=== PATIENT | male | born 1980 | race Caucasian/White ===

== ENCOUNTER 2020-03-25 16:38 | Emergency (ER) | payer OTHER ==
[2020-03-25] MEDS ORDERED: KETOROLAC 15 MG/ML 1 ML VIAL IVP STA (17:59)
[2020-03-25] MEDS ORDERED: SODIUM CHLORIDE 0.9% 1,000 ML IV STA (17:59)
[2020-03-25] MEDS ORDERED: ONDANSETRON 4 MG/2 ML VIAL IVP STA (17:59)
--- NOTE | 2020-03-25 18:01 | ED ---
General Adult HPI - General Chief complaint: Abdominal Pain Stated complaint: Sent by PCP Liver issues Time Seen by Provider: 03/25/20 17:38 Source: patient, RN notes reviewed Mode of arrival: ambulatory Limitations: no limitations - History of Present Illness Initial comments: Patient is a 40-year-old male presenting to the emergency department for right upper quadrant pain. Patient has a history of cirrhosis from a medication and also has a history of chronic alcoholism. Patient is currently an inmate in the half-way and is brought by police department. RN at the half-way thought patient could be in liver failure. No history of jaundice or scleral icterus. Patient does have a history of liver failure in 2013. He denies nausea vomiting diarrhea. Denies fevers or chills. Patient has no other complaints at this time including shortness of breath, chest pain, nausea or vomiting, headache, or visual changes. - Related Data Home Medications Medication Instructions Recorded Confirmed No Known Home Medications 03/25/20 03/25/20 Allergies Allergy/AdvReac Type Severity Reaction Status Date / Time No Known Allergies Allergy Verified 03/25/20 18:41 Review of Systems ROS Statement: Those systems with pertinent positive or pertinent negative responses have been documented in the HPI. ROS Other: All systems not noted in ROS Statement are negative. Past Medical History Additional Past Medical History / Comment(s): cirrhosis History of Any Multi-Drug Resistant Organisms: MRSA Past Surgical History: Hernia Repair Past Psychological History: Anxiety, Bipolar, PTSD Smoking Status: Current every day smoker Past Alcohol Use History: Abuse, Daily Past Drug Use History: Marijuana General Exam Limitations: no limitations General appearance: alert, in no apparent distress Head exam: Present: atraumatic, normocephalic, normal inspection Eye exam: Present: normal appearance, PERRL, EOMI. Absent: scleral icterus, conjunctival injection, periorbital swelling ENT exam: Present: normal exam, mucous membranes moist Neck exam: Present: normal inspection. Absent: tenderness, meningismus, lymphadenopathy Respiratory exam: Present: normal lung sounds bilaterally. Absent: respiratory distress, wheezes, rales, rhonchi, stridor Cardiovascular Exam: Present: regular rate, normal rhythm, normal heart sounds. Absent: systolic murmur, diastolic murmur, rubs, gallop, clicks GI/Abdominal exam: Present: soft, tenderness (mild Tenderness right upper quadrant without guarding or rebound, no left or lower abdominal tenderness), normal bowel sounds. Absent: distended, guarding, rebound, rigid Course Vital Signs 03/25/20 03/25/20 16:47 18:58 Temperature 97.9 F 97.6 F Pulse Rate 62 62 Respiratory 18 16 Rate Blood Pressure 134/90 122/88 O2 Sat by Pulse 100 98 Oximetry Medical Decision Making - Medical Decision Making Vital are stable. Patient is well-appearing. Mild right upper quadrant tenderness however no guarding or rebound. No lower abdominal tenderness. CBC is unremarkable. He does have Darvocet opinion of 54. Patient states he has been told this in the past and does have a history of alcoholism. CMP is unremarkable. Slight transaminitis. Slightly elevated lipase 322. Ultrasound does show evidence of cholelithiasis. There are hyperechoic areas with posterior shadowing likely cholelithiasis. US is limited. XR does show radiographic evidence of splenomegaly without other acute findings. Patient re- evaluated. His pain is significantly improved. Repeat abdominal exam reveals a nontender abdomen. At this time patient was educated on cholelithiasis and a low-fat diet. It was recommended he follow up with general surgery. He will return to the emergency room for any worsening symptoms. I discussed this case with attending Dr. Valdes who agrees with this assessment and treatment plan. - Lab Data Result diagrams: 03/25/20 18:21 03/25/20 18:21 Lab Results 03/25/20 03/25/20 03/25/20 Range/Units 18:21 18:21 18:38 WBC 4.5 (3.8-10.6) k/uL RBC 5.14 (4.30-5.90) m/uL Hgb 16.5 (13.0-17.5) gm/dL Hct 49.9 (39.0-53.0) % MCV 97.0 (80.0-100.0) fL MCH 32.1 (25.0-35.0) pg MCHC 33.0 (31.0-37.0) g/dL RDW 13.4 (11.5-15.5) % Plt Count 54 L (150-450) k/uL MPV 8.9 Neutrophils % 69 % Lymphocytes % 18 % Monocytes % 7 % Eosinophils % 3 % Basophils % 1 % Neutrophils # 3.1 (1.3-7.7) k/uL Lymphocytes # 0.8 L (1.0-4.8) k/uL Monocytes # 0.3 (0-1.0) k/uL Eosinophils # 0.1 (0-0.7) k/uL Basophils # 0.0 (0-0.2) k/uL Sodium 138 (137-145) mmol/L Potassium 4.7 (3.5-5.1) mmol/L Chloride 102 (98-107) mmol/L Carbon Dioxide 29 (22-30) mmol/L Anion Gap 7 mmol/L BUN 12 (9-20) mg/dL Creatinine 0.72 (0.66-1.25) mg/dL Est GFR (CKD-EPI)AfAm >90 (>60 ml/min/1.73 sqM) Est GFR (CKD-EPI)NonAf >90 (>60 ml/min/1.73 sqM) Glucose 99 (74-99) mg/dL Calcium 9.2 (8.4-10.2) mg/dL Total Bilirubin 1.1 (0.2-1.3) mg/dL AST 80 H (17-59) U/L ALT 83 H (4-49) U/L Alkaline Phosphatase 96 (38-126) U/L Total Protein 8.5 H (6.3-8.2) g/dL Albumin 4.7 (3.5-5.0) g/dL Amylase 120 H (30-110) U/L Lipase 322 H (23-300) U/L Urine Color Light Yellow Urine Appearance Clear (Clear) Urine pH 7.5 (5.0-8.0) Ur Specific [place] 1.008 (1.001-1.035) Urine Protein Negative (Negative) Urine Glucose (UA) Negative (Negative) Urine Ketones Negative (Negative) Urine Blood Negative (Negative) Urine Nitrite Negative (Negative) Urine Bilirubin Negative (Negative) Urine Urobilinogen 2.0 (<2.0) mg/dL Ur Leukocyte Esterase Negative (Negative) Disposition Clinical Impression: Abdominal pain, Cholelithiasis Disposition: HOME SELF-CARE Condition: Poor Instructions (If sedation given, give patient instructions): Abdominal Pain ( ED) Additional Instructions: Please follow up with general surgery. Stick to a low-fat diet as this should help with your pain. Please return to the emergency room for any worsening symptoms such as worsening abdominal pain. Is patient prescribed a controlled substance at d/c from ED?: No Referrals: Nonstaff,Physician [Primary Care Provider] - 1-2 days Uziel Ann MD [STAFF PHYSICIAN] - 1-2 days Time of Disposition: 21:10
[2020-03-25 18:43] LABS: Appearance,Urine Clear (Clear); Bilirubin,Urine Negative (Negative); Blood,Urine Negative (Negative); Color,Urine Light Yellow; Glucose,Urine (UA) Negative (Negative); Ketones,Urine Negative (Negative); Leukocyte Esterase,Urine Negative (Negative); Nitrite,Urine Negative (Negative); PH, Urine 7.5 (5.0-8.0); Protein,Urine Negative (Negative); Specific Gravity,Urine 1.008 (1.001-1.035)
[2020-03-25 18:43] LABS: Basophils % (A) 1 %; Eosinophils # (A) 0.1 k/uL (0-0.7); Eosinophils % (A) 3 %; HCT 49.9 % (39.0-53.0); HGB 16.5 gm/dL (13.0-17.5); Lymphocytes # (A) 0.8 k/uL (1.0-4.8); Lymphocytes % (A) 18 %; MCH 32.1 pg (25.0-35.0); Mean Platelet Volume 8.9; Monocytes # (A) 0.3 k/uL (0-1.0); Monocytes % (A) 7 %; Neutrophils # (A) 3.1 k/uL (1.3-7.7); Neutrophils % (A) 69 %; RBC 5.14 m/uL (4.30-5.90); RDW 13.4 % (11.5-15.5); WBC 4.5 k/uL (3.8-10.6)
[2020-03-25 18:59] VITALS: TEMP 97.6
[2020-03-25 19:24] LABS: ALT 83 U/L (4-49); AST 80 U/L (17-59); African American GFR (CKD) >90 (>60 ml/min/1.73 sqM); Albumin 4.7 g/dL (3.5-5.0); Alkaline Phosphatase 96 U/L (38-126); Amylase 120 U/L (30-110); Anion Gap 7 mmol/L; Blood Urea Nitrogen 12 mg/dL (9-20); Calcium 9.2 mg/dL (8.4-10.2); Carbon Dioxide 29 mmol/L (22-30); Chloride 102 mmol/L (98-107); Glucose 99 mg/dL (74-99); Lipase 322 U/L (23-300); Non-African American GFR(CKD) >90 (>60 ml/min/1.73 sqM); Potassium 4.7 mmol/L (3.5-5.1); Sodium 138 mmol/L (137-145); Total Bilirubin 1.1 mg/dL (0.2-1.3); Total Protein 8.5 g/dL (6.3-8.2)
[2020-03-25 19:44] LABS: Platelet Count 54 k/uL (150-450)
--- NOTE | 2020-03-25 20:05 | XR ---
EXAMINATION TYPE: XR KUB - 2 views DATE OF EXAM: 03/25/2020 6:49 PM CLINICAL HISTORY: Abdominal pain and nausea TECHNIQUE: 2 upright views COMPARISON: None. FINDINGS: There is evidence of splenomegaly, with the spleen extending from the diaphragms down to th e superior iliac crest, approximately 20 cm in this dimension. The interface of the spleen with the g astric fundus can be readily visualized, but the bilateral renal margins are difficult to see due to overlying bowel gas. Scattered gas is seen in non-distended small bowel loops. Gas and fecal material is seen in non-diste nded colon. There is no pneumoperitoneum, or abnormal calcification appreciated. The lung bases are c lear and the osseous structures are intact. IMPRESSION: 1. Radiographic evidence of splenomegaly. 2. No other findings.
--- NOTE | 2020-03-25 20:41 | US ---
EXAMINATION TYPE: US abdomen limited DATE OF EXAM: 03/25/2020 COMPARISON: NONE CLINICAL HISTORY: RUQ. RUQ pain x 2 days. Hx gallstones per patient. EXAM MEASUREMENTS: Liver Length: 14.8 cm Gallbladder not definitely seen. CBD: Not seen. Right Kidney: 10.7 x 5.0 x 6.6 cm Pancreas: Obscured by gas. Liver: Appears to have abnormal contour left lobe. Appears slightly coarse. Limited due to gas. Gallbladder: Not definitely seen. At the area of the gallbladder, there appears to be hyperechoic ec hoes with posterior shadowing. Evidence for sonographic Reyes's sign: No Right Kidney: No hydronephrosis or masses seen. Images taken prone. Thin patient body habitus. IMPRESSION: 1. Limited examination due to difficulty in visualizing anatomic structures. 2. Examination consistent with cholelithiasis.
[2020-03-25 21:59] VITALS: BP 120/88; PULSE 67; RESP 18
== END 2020-03-25 21:59 | disposition home or self-care (01) ==
LOC: EC 16:38
DX: K80.20 Calculus of gallbladder without cholecystitis without obstruction (principal); R74.01 Elevation of levels of liver transaminase levels; R74.8 Abnormal levels of other serum enzymes; R16.1 Splenomegaly, not elsewhere classified; F17.200 Nicotine dependence, unspecified, uncomplicated
CPT/HCPCS: 36415; 80053; 82150; 83690; 85025; 81003; 74018; 76705; 99284; 96374; 96375; J2405; J1885